=== PATIENT | male | born 1940 | race Caucasian/White ===

== ENCOUNTER 2019-11-29 08:39 | Emergency (ER) | payer MEDICARE ==
[2019-11-29] MEDS ORDERED: Morphine 4 MG/ML VIAL ONE (09:08)
[2019-11-29] MEDS ORDERED: Morphine 2 MG/ML SYRINGE ONE (09:08)
== END 2019-11-29 10:01 | disposition home or self-care (01) ==
LOC: ERS 08:39
DX: M54.5 Low back pain (principal); G89.29 Other chronic pain; E78.5 Hyperlipidemia, unspecified; E78.00 Pure hypercholesterolemia, unspecified; I10 Essential (primary) hypertension; F41.9 Anxiety disorder, unspecified; F32.9 Major depressive disorder, single episode, unspecified; Z79.01 Long term (current) use of anticoagulants; Z79.82 Long term (current) use of aspirin
CPT/HCPCS: 96372; 99283; J2270

== ENCOUNTER → 2020-02-09 | Outpatient (CLI) | payer MEDICARE | LOC: SLEEPLAB 19:00 | PROVIDERS: ATTEND Family Medicine | DX: G47.33 Obstructive sleep apnea (adult) (pediatric) (principal); R53.83 Other fatigue; K21.9 Gastro-esophageal reflux disease without esophagitis; R06.83 Snoring; F41.9 Anxiety disorder, unspecified; G47.00 Insomnia, unspecified; I10 Essential (primary) hypertension; I25.10 Atherosclerotic heart disease of native coronary artery without angina pectoris; G45.9 Transient cerebral ischemic attack, unspecified; G47.10 Hypersomnia, unspecified; E66.9 Obesity, unspecified; G47.61 Periodic limb movement disorder; G47.31 Primary central sleep apnea; Z68.28 Body mass index [BMI] 28.0-28.9, adult | CPT/HCPCS: 95811 ==